=== PATIENT | male | born 1990 | race Caucasian/White ===

== ENCOUNTER 2021-06-21 10:55 | Emergency (ER) | payer OTHER ==
[~2021-06-21] VITALS: Ht 167.6 cm; Wt 68.0 kg
[~2021-06-21 10:55] MED LIST: NOHOMEMEDICATIONS
[2021-06-21 11:23] VITALS: BP 134/82
== END 2021-06-21 11:24 | disposition home or self-care (01) ==
LOC: M.ERS 10:55
DX: B37.9 Candidiasis, unspecified (principal)